=== PATIENT | female | born 1965 | race Caucasian/White ===

== ENCOUNTER → 2018-08-23 | Outpatient (CLI) | payer MEDICARE ==
--- NOTE | 2018-08-23 10:52 | RAD ---
EXAM: Bilateral lower extremity venous Doppler sonogram; right lower extremity arterial Doppler sonogram. HISTORY: Venous insufficiency. Leg swelling. Right hemiplegia. TECHNIQUE: Rogers scale and color Doppler sonographic evaluation of the bilateral lower extremity veins and right lower extremity arteries with spectral waveform analysis was performed. FINDINGS: Bilateral lower extremity venous Doppler sonogram: There is normal color flow, normal compressibility and there are normal spectral waveforms in the common femoral, superficial femoral, popliteal, posterior tibial and greater saphenous veins. The exam is limited due to patient body habitus and soft tissue edema. Right lower extremity arterial Doppler sonogram: There are abnormal monophasic waveforms throughout the right lower extremity arteries. These vessels are difficult to assess given the patient body habitus and lower extremity soft tissue swelling. No occlusion is seen. The peak systolic velocities within the right lower extremity arteries measure 119 cm/s within the common femoral artery, 71 cm/s within the deep femoral artery, 73 cm/s, 61 cm/s, and 44 cm/s within the proximal, mid and distal superficial femoral artery, 58 cm/s within the popliteal artery, 31 cm/s within the distal posterior tibial artery, 44 cm/s within the peroneal artery, 67 cm/s within the anterior tibial artery and 41 cm/s within the dorsalis pedis artery. IMPRESSION: 1. No Doppler evidence of lower extremity deep venous thrombosis, with evaluation limited due to body habitus and soft tissue edema. 2. Abnormal monophasic waveforms throughout the right lower extremity arteries. This can be seen with proximal stenosis. There is no elevated peak systolic velocity to suggest high-grade stenosis and there is no evidence of arterial occlusion. Electronically signed by: Mita Do MD (08/23/2018 10:48 AM) [place] [id number]
== END | disposition home or self-care (01) ==
LOC: US 08:58
PROVIDERS: ATTEND Family Medicine
DX: I87.2 Venous insufficiency (chronic) (peripheral) (principal); G81.91 Hemiplegia, unspecified affecting right dominant side
CPT/HCPCS: 93926; 93970